=== PATIENT | female | born 1940 | race Caucasian/White ===

== ENCOUNTER 2016-04-13 17:11 | Emergency (ER) | payer MEDICARE, OTHER ==
[~2016-04-13] VITALS: Ht 165.1 cm; Wt 60.3 kg
[2016-04-13] MEDS ORDERED: ONDANSETRON 4 MG/2 ML (SDV) Z0FRAN IVP ONE (18:15)
[2016-04-13 18:34] LABS: ALANINE AMINOTRANSFERASE 29 U/L (0-55); ALBUMIN 3.8 G/DL (3.2-4.5); ANION GAP 11 MMOL/L (5-14); ASPARTATE AMINO TRANSFERASE 34 U/L (5-34); BILIRUBIN,TOTAL 0.6 MG/DL (0.1-1.0); BLOOD UREA NITROGEN 9 MG/DL (7-18); BUN/CREATININE RATIO 14; CARBON DIOXIDE 24 MMOL/L (21-32); CHLORIDE 101 MMOL/L (98-107); CREATININE SERUM 0.63 MG/DL (0.60-1.30); GFR ESTIMATED > 60; GLUCOSE 106 MG/DL (70-105); POTASSIUM 3.2 MMOL/L (3.6-5.0); SODIUM 136 MMOL/L (135-145); TOTAL PROTEIN 6.8 G/DL (6.4-8.2)
[2016-04-13 18:35] LABS: BASOPHILS % (AUTO) 0 % (0-10); EOSINOPHILS % (AUTO) 0 % (0-10); LYMPHOCYTES # (AUTO) 1.3 X 10^3 (1.0-4.0); LYMPHOCYTES % (AUTO) 14 % (12-44); MEAN CORPUSCULAR HEMOGLOBIN 34 PG (25-34); MEAN CORPUSCULAR HGB CONC 35 G/DL (32-36); MEAN CORPUSCULAR VOLUME 97 FL (80-99); MEAN PLATELET VOLUME 8.6 FL (7.4-10.4); MONOCYTES # (AUTO) 0.4 X 10^3 (0.0-1.0); MONOCYTES % (AUTO) 4 % (0-12); NEUTROPHILS # (AUTO) 7.7 X 10^3 (1.8-7.8); NEUTROPHILS % (AUTO) 82 % (42-75); PLATELET COUNT 358 10^3/uL (130-400); RED BLOOD COUNT 3.37 10^6/uL (4.35-5.85); RED CELL DISTRIBUTION WIDTH 12.9 % (10.0-14.5); WHITE BLOOD COUNT 9.4 10^3/uL (4.3-11.0)
[2016-04-13 18:46] LABS: BILIRUBIN,URINE NEGATIVE (NEGATIVE); KETONES,URINE NEGATIVE (NEGATIVE); LEUKOCYTE ESTERASE ,URINE NEGATIVE (NEGATIVE); NITRITE,URINE NEGATIVE (NEGATIVE); PH,URINE 7 (5-9); PROTEIN,URINE NEGATIVE (NEGATIVE); UROBILINOGEN,URINE NORMAL (NORMAL)
[2016-04-13 18:55] LABS: WBC,URINE 0-2 /HPF
--- NOTE | 2016-04-13 19:14 | Diagnostic Imaging Report ---
INDICATION: Recent hip surgery 2 weeks ago. Unable to urinate. Calcification. FINDINGS: 3 views show the lungs to be clear. There is no free air under the diaphragm. Upright and supine abdomen shows mild gaseous distention of the small bowel and colon. There is considerable stool in the rectal vault. The remainder of the colon does not show a large volume of stool. No organomegaly. No pathologic calcification. Scoliosis of the lumbar spine noted. IMPRESSION: Finding consistent with mild generalized ileus. There is moderate amount of stool within the rectal vault at this time though the remainder of the colon does not show a large burden of stool. Dictated by: Dictated on workstation # [id number]
--- NOTE | 2016-04-13 19:46 | ED GI ---
General Chief Complaint: Abdominal/GI Problems Stated Complaint: NAUSEA,UNABLE TO URINATE Nursing Triage Note: PT REPORTS R HIP REPLACEMENT 2 WEEKS [employer]ICE [employer]. SHE HAS BEEN TAKING HYDROCODONE UD DAILY UNTIL YESTERDAY. SHE REPORTS SHE HAS BEEN HAVING "PROBLEMS" HAVING BMS AND NOW SHE IS HAVING WATERY DIARRHEA AND IS CONSTIPATED. SHE STATES THAT TODAY, SHE IS HAVING DIFFICULTY URINATING AND SHE IS HAVING PAIN IN HER RECTUM. Sepsis Screen: No Definite Risk Source of Information: Patient History of Present Illness Time Seen By Provider: 18:00 Initial Comments PT IS HERE VISITING FROM [place] PT HAD RIGHT HIP REPLACEMENT 2 WEEKS AGO AT [address] ( HAS FOLLOW UP APPOINTMENT ON Tuesday) PT HAS BEEN TAKING HYDROCODONE 4 TIMES A DAY EVERY DAY, UNTIL TODAY--RAN OUT OF MEDICATION LAST PM STATES SHE HAS BEEN HAVING PROBLEMS WITH CONSTIPATION FOR THE LAST WEEK AND LAST BM WAS 2 DAYS AGO AND WAS SMALL AND VERY HARD. HAS NOT TAKEN ANYTHING FOR CONSTIPATION PT HAS HAD MUCH RECTAL PAIN/PRESSURE TODAY AND HAS BEEN CONSTANTLY LEAKING LIQUID STOOL ALL DAY TODAY PT STATES SHE HAS BEEN UNABLE TO URINATE TODAY HAS BEEN NAUSEATED TODAY, BUT NO VOMITING. AND IS STILL ABLE TO EAT AND DRINK NO FEVER NO HISTORY OF SIMILAR NO LOCAL PCP Allergies and Home Medications Allergies Coded Allergies: No Known Drug Allergies (Unverified , 04/13/16) Review of Systems Constitutional: no symptoms reported Respiratory: No Symptoms Reported Cardiovascular: No Symptoms Reported Gastrointestinal: See HPI Genitourinary: See HPI Musculoskeletal: see HPI Skin: no symptoms reported Psychiatric/Neurological: No Symptoms Reported Endocrine: No Symptoms Reported Hematologic/Lymphatic: No Symptoms Reported Past Urjphyc-Rrurto-Gjaqtb Hx Patient Social History Alcohol Use: Occasionally Uses Recreational Drug Use: No Smoking Status: Never a Smoker Recent Foreign Travel: No Contact w/Someone Who Travel: No Recent Infectious Disease Expo: No Recent Hopitalizations: Yes (R HIP REPLACEMENT) Physical Abuse Screen: No Sexual Abuse: No Seasonal Allergies Seasonal Allergies: No Surgeries HX Surgeries: Yes (BILATERAL HIP REPLACEMENTS) Surgeries: Orthopedic Respiratory Hx Respiratory Disorders: No Cardiovascular Hx Cardiac Disorders: Yes Cardiac Disorders: Hypertension Neurological Hx Neurological Disorders: No Reproductive System DIGITAL STRATEGIST History: Menopausal Genitourinary Hx Genitourinary Disorders: No Gastrointestinal Hx Gastrointestinal Disorders: Yes Gastrointestinal Disorders: Gastroesophageal Reflux Musculoskeletal Hx Musculoskeletal Disorders: Yes (BILAT HIP REPLACEMENTS) Endocrine Hx Endocrine Disorders: No HEENT HX ENT Disorders: No Cancer Hx Cancer: No Psychosocial Hx Psychiatric Problems: No Integumentary HX Skin/Integumentary Disorder: No Blood Transfusions Hx Blood Disorders: No Physical Exam Vital Signs VS - Last 72 Hours, by Label 04/13/16 04/13/16 17:40 19:59 Temp 98.9 98.9 Pulse 69 69 Resp 14 14 B/P 162/83 Pulse Ox 95 95 O2 Delivery Room Air Capillary Refill : Less Than 3 Seconds General Appearance: WD/WN no apparent distress Respiratory: normal breath sounds no respiratory distress no accessory muscle use Cardiovascular: normal peripheral pulses regular rate, rhythm no murmur Gastrointestinal: normal bowel sounds no pulsatile mass tenderness other ( BLADDER DISTENDED AND MILDLY TENDER) Genital/Rectal: other (EXTERNAL GENITAL AREA VERY ATROPHIED. CONSTANT OOZING OF LIQUID STOOL. ) Extremities: other (TENDERNESS TO RIGHT HIP AREA WITH VERY LIMITED ROM OF HIP. 1+ EDEMA OF RIGHT LEG--STATES HAS BEEN THIS WAY SINCE SURGERY) Back: no CVA tenderness Neurologic/Psychiatric: rn gyn II-XII nml as tested no motor/sensory deficits alert normal mood/affect oriented x 3 Skin: normal color warm/dry Progress/Results/Core Measures Results/Orders Lab Results Laboratory Tests Test 04/13/16 18:07 04/13/16 18:36 Range/Units Alanine Aminotransferase (ALT/SGPT) 29 0-55 U/L Albumin 3.8 3.2-4.5 G/DL Alkaline Phosphatase 143 H 40-136 U/L Anion Gap 11 5-14 MMOL/L Aspartate Amino Transf (AST/SGOT) 34 5-34 U/L BUN/Creatinine Ratio 14 Basophils # (Auto) 0.0 0.0-0.1 10^3/uL Basophils (%) (Auto) 0 0-10 % Blood Urea Nitrogen 9 7-18 MG/DL Calcium Level 10.0 8.5-10.1 MG/DL Carbon Dioxide Level 24 21-32 MMOL/L Chloride Level 101 98-107 MMOL/L Creatinine 0.63 0.60-1.30 MG/DL Eosinophils # (Auto) 0.0 0.0-0.3 10^3/uL Eosinophils (%) (Auto) 0 0-10 % Estimat Glomerular Filtration Rate > 60 Glucose Level 106 H 70-105 MG/DL Hematocrit 33 L 35-52 % Hemoglobin 11.5 11.5-16.0 G/DL Lymphocytes # (Auto) 1.3 1.0-4.0 X 10^3 Lymphocytes (%) (Auto) 14 12-44 % Mean Corpuscular Hemoglobin 34 25-34 PG Mean Corpuscular Hemoglobin Concent 35 32-36 G/DL Mean Corpuscular Volume 97 80-99 FL Mean Platelet Volume 8.6 7.4-10.4 FL Monocytes # (Auto) 0.4 0.0-1.0 X 10^3 Monocytes (%) (Auto) 4 0-12 % Neutrophils # (Auto) 7.7 1.8-7.8 X 10^3 Neutrophils (%) (Auto) 82 H 42-75 % Platelet Count 358 130-400 10^3/uL Potassium Level 3.2 L 3.6-5.0 MMOL/L Red Blood Count 3.37 L 4.35-5.85 10^6/uL Red Cell Distribution Width 12.9 10.0-14.5 % Sodium Level 136 135-145 MMOL/L Total Bilirubin 0.6 0.1-1.0 MG/DL Total Protein 6.8 6.4-8.2 G/DL White Blood Count 9.4 4.3-11.0 10^3/uL Urine Bacteria NEGATIVE /HPF Urine Bilirubin NEGATIVE NEGATIVE Urine Casts NONE /LPF Urine Clarity SLIGHTLY CLOUDY Urine Color YELLOW Urine Crystals NONE /LPF Urine Culture Indicated NO Urine Glucose (UA) NEGATIVE NEGATIVE Urine Ketones NEGATIVE NEGATIVE Urine Leukocyte Esterase NEGATIVE NEGATIVE Urine Mucus NEGATIVE /LPF Urine Nitrite NEGATIVE NEGATIVE Urine Protein NEGATIVE NEGATIVE Urine RBC 2-5 H /HPF Urine RBC (Auto) 2+ H NEGATIVE Urine Specific [place] 1.010 L 1.016-1.022 Urine Urobilinogen NORMAL NORMAL MG/DL Urine WBC 0-2 /HPF Urine pH 7 5-9 My Orders Orders-RUSS,DUDLEY K DO Saline Lock/Iv-Start (04/13/16 18:00) Cbc With Automated Diff (04/13/16 18:00) Comprehensive Metabolic Panel (04/13/16 18:00) Ua Culture If Indicated (04/13/16 18:00) Bladder Scan (04/13/16 18:00) Ondansetron Injection (Zofran Injectio (04/13/16 18:15) Acute Abd Series (04/13/16 18:04) Catheter(Urinary) Insert & Ass 03,15 (04/13/16 18:17) Medications Given in ED Current Medications Medications Dose Ordered Sig/Shaylee Route Start Time Stop Time Status Last Admin Dose Admin Ondansetron HCl 4 mg ONCE ONCE IVP 04/13/16 18:15 04/13/16 18:16 DC 04/13/16 18:13 4 MG Vital Signs/I&O Vital Sign - Last 12Hours 04/13/16 04/13/16 17:40 19:59 Temp 98.9 98.9 Pulse 69 69 Resp 14 14 B/P 162/83 Pulse Ox 95 95 O2 Delivery Room Air Blood Pressure Mean: 109 Progress Note : Progress Note CATHETER PLACED, WITH RETURN OF OVER 1300 ML URINE. PT SENT TO FLOOR FOR OUTPATIENT ENEMAS UNTIL CLEAR. Diagnostic Imaging Comments ACUTE ABDOMEN XRAYS--MILD ILEUS, MODERATE AMOUNT OF STOOL IN RECTUM--PER RADIOLOGIST REPORT @ 1918 Reviewed: Reviewed by Me Departure Impression Impression: Primary Impression: CONSTIPATION WITH RECTAL IMPACTION Additional Impressions: URINARY RETENTION DUE TO RECTAL IMPACTION S/P RECENT RIGHT HIP SURGERY Disposition: 01 HOME, SELF-CARE Condition: Stable Departure-Patient Inst. Referrals: NO,LOCAL PHYSICIAN (PCP/Family) Primary Care Physician Patient Instructions: Constipation, Adult (DC), Fecal Impaction (DC), Urinary Retention (DC) Add. Discharge Instructions: LOTS OF CLEAR LIQUIDS COLACE STOOL SOFTENER--2 PILLS DAILY, MAY USE UP TO 2 PILLS TWICE A DAY IF NEEDED FOLLOW UP WITH YOUR SURGEON SCHEDULED All discharge instructions reviewed with patient and/or family. Voiced understanding. DUDLEY SOLANO DO Apr 13, 2016 19:46
[2016-04-13 19:59] VITALS: BP 162/83
== END 2016-04-13 19:59 | disposition home or self-care (01) ==
LOC: ER 17:16
DX: R33.8 Other retention of urine (principal); K56.41 Fecal impaction; Z98.890 Other specified postprocedural states; Z96.641 Presence of right artificial hip joint; Z96.642 Presence of left artificial hip joint
CPT/HCPCS: 36415; 51702; 74022; 80053; 81000; 85025; 96374

== ENCOUNTER → 2016-04-13 | Outpatient (CLI) | payer MEDICARE, OTHER ==
[~2016-04-13] VITALS: Ht 165.1 cm; Wt 74.8 kg
[2016-04-13 20:30] VITALS: BP 161/76
--- OUTSIDE RECORDS SUMMARY | 2016-04-13 20:49 | XMS REPORT | Continuity of Care Document ---
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 Medications No medication information available. Social History Social History Problem Response Recorded Date/Time Alcohol Use Occasionally Uses 04/13/2016 5:40pm Recreational Drug Use No 04/13/2016 5:40pm Recent Foreign Travel No 04/13/2016 5:40pm Recent Infectious Disease Exposure No 04/13/2016 5:40pm Hospitalization with Isolation Denies 04/13/2016 5:40pm Smoking Status Never a Smoker 04/13/2016 5:40pm Recent Hopitalizations Y R HIP REPLACEMENT 04/13/2016 5:40pm Hospitalization with Isolation Denies 04/13/2016 5:40pm Query Response Start Date Stop Date Smoking Status Never a Smoker Hospital Discharge Instructions No hospital discharge instructions. Plan of Care Discharge Date 04/13/16 7:59pm Disposition 01 HOME, SELF-CARE Condition at Discharge Stable Instructions/Education Provided Constipation, Adult (DC) Fecal Impaction (DC) Urinary Retention (DC) Prescriptions See Medication Section Referrals NO,LOCAL PHYSICIAN - Primary Care Physician Additional Instructions/Education LOTS OF CLEAR LIQUIDS COLACE STOOL SOFTENER--2 PILLS DAILY, MAY USE UP TO 2 PILLS TWICE A DAY IF NEEDED FOLLOW UP WITH YOUR SURGEON SCHEDULED All discharge instructions reviewed with patient and/or family. Voiced understanding. Functional Status No functional status results. Allergies, Adverse Reactions, Alerts No known allergies. Immunizations No immunization records. Vital Signs Acute Vital Signs Vital Response Date/Time Temperature (Fahrenheit) 98.9 degrees F (97.6 - 99.5) 04/13/2016 5:40pm Temperature (Calculated Celsius) 37.96140 degrees C (36.4 - 37.5) 04/13/2016 5:40pm Temperature Source Temporal 04/13/2016 5:40pm Pulse Rate (adult) 69 bpm (60 - 90) 04/13/2016 5:40pm Respiratory Rate 14 bpm (12 - 24) 04/13/2016 5:40pm O2 Sat by Pulse Oximetry 95 % (88 - 100) 04/13/2016 5:40pm Blood Pressure 162/83 mm Hg 04/13/2016 5:40pm Blood Pressure Mean 109 mm Hg 04/13/2016 5:40pm Pain Numeric Pain Scale 7 04/13/2016 5:40pm Height (Feet) 5 feet 04/13/2016 5:40pm Height (Inches) 5 inches 04/13/2016 5:40pm Height (Calculated Centimeters) 165.348745 cm 04/13/2016 5:40pm Weight (Pounds) 133 pounds 04/13/2016 5:40pm Weight (Calculated Kilograms) 60.796978 kilograms 04/13/2016 5:40pm Capillary Refill Capillary Refill Less Than 3 Seconds 04/13/2016 5:40pm Height 5 ft 5 in Weight 133 lb Body Mass Index 22.1 kg/m^2 Results Laboratory Results Test Name Result Units Flags Reference Collection Date/Time Result Date/ Time Comments White Blood Count 9.4 10^3/uL 4.3-11.0 04/13/2016 6:07pm 04/13/2016 6: 36pm Red Blood Count 3.37 10^6/uL L 4.35-5.85 04/13/2016 6:07pm 04/13/2016 6: 36pm Hemoglobin 11.5 G/DL 11.5-16.0 04/13/2016 6:07pm 04/13/2016 6:36pm Hematocrit 33 % L 35-52 04/13/2016 6:07pm 04/13/2016 6:36pm Mean Corpuscular Volume 97 FL 80-99 04/13/2016 6:07pm 04/13/2016 6: 36pm Mean Corpuscular Hemoglobin 34 PG 25-34 04/13/2016 6:07pm 04/13/2016 6: 36pm Mean Corpuscular Hemoglobin Concent 35 G/DL 32-36 04/13/2016 6:07pm 6:36pm Red Cell Distribution Width 12.9 % 10.0-14.5 04/13/2016 6:07pm 2016 6:36pm Platelet Count 358 10^3/uL 130-400 04/13/2016 6:07pm 04/13/2016 6:36pm Mean Platelet Volume 8.6 FL 7.4-10.4 04/13/2016 6:07pm 04/13/2016 6: 36pm Neutrophils (%) (Auto) 82 % H 42-75 04/13/2016 6:07pm 04/13/2016 6:36pm Lymphocytes (%) (Auto) 14 % 12-44 04/13/2016 6:07pm 04/13/2016 6:36pm Monocytes (%) (Auto) 4 % 0-12 04/13/2016 6:07pm 04/13/2016 6:36pm Eosinophils (%) (Auto) 0 % 0-10 04/13/2016 6:07pm 04/13/2016 6:36pm Basophils (%) (Auto) 0 % 0-10 04/13/2016 6:07pm 04/13/2016 6:36pm Neutrophils # (Auto) 7.7 X 10^3 1.8-7.8 04/13/2016 6:07pm 04/13/2016 6: 36pm Lymphocytes # (Auto) 1.3 X 10^3 1.0-4.0 04/13/2016 6:07pm 04/13/2016 6: 36pm Monocytes # (Auto) 0.4 X 10^3 0.0-1.0 04/13/2016 6:07pm 04/13/2016 6: 36pm Eosinophils # (Auto) 0.0 10^3/uL 0.0-0.3 04/13/2016 6:07pm 04/13/2016 6 :36pm Basophils # (Auto) 0.0 10^3/uL 0.0-0.1 04/13/2016 6:07pm 04/13/2016 6: 36pm Urine Color YELLOW 04/13/2016 6:36pm 04/13/2016 6:56pm Urine Clarity SLIGHTLY CLOUDY 04/13/2016 6:36pm 04/13/2016 6:56pm Urine pH 7 5-9 04/13/2016 6:36pm 04/13/2016 6:56pm Urine Specific [place] 1.010 * 1.016-1.022 04/13/2016 6:36pm 2016 6:56pm Urine Protein NEGATIVE NEGATIVE 04/13/2016 6:36pm 04/13/2016 6:56pm Urine Glucose (UA) NEGATIVE NEGATIVE 04/13/2016 6:36pm 04/13/2016 6: 56pm Urine RBC (Auto) 2+ * NEGATIVE 04/13/2016 6:36pm 04/13/2016 6:56pm Urine Ketones NEGATIVE NEGATIVE 04/13/2016 6:36pm 04/13/2016 6:56pm Urine Nitrite NEGATIVE NEGATIVE 04/13/2016 6:36pm 04/13/2016 6:56pm Urine Bilirubin NEGATIVE NEGATIVE 04/13/2016 6:36pm 04/13/2016 6: 56pm Urine Urobilinogen NORMAL MG/DL NORMAL 04/13/2016 6:36pm 04/13/2016 6: 56pm Urine Leukocyte Esterase NEGATIVE NEGATIVE 04/13/2016 6:36pm 2016 6:56pm Urine RBC 2-5 /HPF * 04/13/2016 6:36pm 04/13/2016 6:56pm Urine WBC 0-2 /HPF 04/13/2016 6:36pm 04/13/2016 6:56pm Urine Bacteria NEGATIVE /HPF 04/13/2016 6:36pm 04/13/2016 6:56pm Urine Crystals NONE /LPF 04/13/2016 6:36pm 04/13/2016 6:56pm Urine Casts NONE /LPF 04/13/2016 6:36pm 04/13/2016 6:56pm Urine Mucus NEGATIVE /LPF 04/13/2016 6:36pm 04/13/2016 6:56pm Urine Culture Indicated NO 04/13/2016 6:36pm 04/13/2016 6:56pm Sodium Level 136 MMOL/L 135-145 04/13/2016 6:07pm 04/13/2016 6:34pm Potassium Level 3.2 MMOL/L L 3.6-5.0 04/13/2016 6:07pm 04/13/2016 6:34pm Chloride Level 101 MMOL/L 98-107 04/13/2016 6:07pm 04/13/2016 6:34pm Carbon Dioxide Level 24 MMOL/L 21-32 04/13/2016 6:07pm 04/13/2016 6: 34pm Anion Gap 11 MMOL/L 5-14 04/13/2016 6:07pm 04/13/2016 6:34pm Blood Urea Nitrogen 9 MG/DL 7-18 04/13/2016 6:07pm 04/13/2016 6:34pm Creatinine 0.63 MG/DL 0.60-1.30 04/13/2016 6:07pm 04/13/2016 6:34pm BUN/Creatinine Ratio 14 04/13/2016 6:07pm 04/13/2016 6:34pm Estimat Glomerular Filtration Rate > 60 04/13/2016 6:07pm 2016 6:34pm GFR INTERPRETIVE DATA UNITS FOR ESTIMATED GFR (eGFR): mL/min/1.73 M2 REFERENCE RANGE FOR ESTIMATED GFR (eGFR) eGFR NORMAL eGFR >60 MODERATELY DECREASED eGFR 30-59 SEVERLY DECREASED eGFR 15-29 KIDNEY FAILURE <15 (OR DIALYSIS) Glucose Level 106 MG/DL H 70-105 04/13/2016 6:07pm 04/13/2016 6:34pm Calcium Level 10.0 MG/DL 8.5-10.1 04/13/2016 6:07pm 04/13/2016 6:34pm Total Bilirubin 0.6 MG/DL 0.1-1.0 04/13/2016 6:07pm 04/13/2016 6:34pm Alkaline Phosphatase 143 U/L H 40-136 04/13/2016 6:07pm 04/13/2016 6: 34pm Aspartate Amino Transf (AST/SGOT) 34 U/L 5-34 04/13/2016 6:07pm 2016 6:34pm Alanine Aminotransferase (ALT/SGPT) 29 U/L 0-55 04/13/2016 6:07pm 04/13 6:34pm Total Protein 6.8 G/DL 6.4-8.2 04/13/2016 6:07pm 04/13/2016 6:34pm Albumin 3.8 G/DL 3.2-4.5 04/13/2016 6:07pm 04/13/2016 6:34pm Procedures No known history of procedures. Encounters Encounter Location Arrival/Admit Date Discharge/Depart Date Attending Provider Departed Emergency Room [facility] 04/13/16 5:16pm 04/13 7:59pm DUDLEY SOLANO DO Recent Diagnosis
== END ==
LOC: 4THo 20:38
PROVIDERS: ATTEND Emergency Medicine
DX: K56.41 Fecal impaction (principal)